=== PATIENT | male | born 1955 | race African-American/Black ===

== ENCOUNTER 2017-12-14 05:54 | Inpatient (IN) | payer SELFPAY ==
[~2017-12-14] VITALS: Ht 172.7 cm; Wt 79.9 kg
[2017-12-14] MEDS ORDERED: IOHEXOL 350 MG/ML 10 ML VIAL (for RAD DIAG) IVCONTRAST ONE (05:55)
[2017-12-14 05:57] VITALS: BP 175/108; PULSE 92; RESP 18; TEMP 98.9; O2SAT 99
[2017-12-14] MEDS ORDERED: ASPIRIN 325 MG TAB PO ONE (06:15)
[2017-12-14] MEDS ORDERED: SODIUM CHLORIDE 0.9% FLUSH 10 ML FLUSH IVF PRN (06:15)
--- NOTE | 2017-12-14 06:21 | PD ---
HPI Chief Complaint: Respiratory Symptoms Time Seen by Provider: 06:08 Travel History International Travel<30 days: No Contact w/Intl Traveler<30days: No Traveled to known affect area: No History of Present Illness HPI The patient 62 years old. He complains of shortness of breath which has gradually been worsening over the past couple years. He has daily shortness of breath symptoms now. He also has dyspnea on exertion with chest discomfort on exertion as well palpitations and racing heart. He denies radiation of pain. No family history coronary artery disease. The patient has no history of coronary artery disease. Hypertension hyperlipidemia or smoking history. Severity moderate. PFSH Past Medical History Diminished Hearing: No GERD: Yes Inguinal Hernia: Yes Tetanus Vaccination: < 5 Years Influenza Vaccination: No Past Surgical History Other Surgery: Yes (left and right side ingunial hernia repairs) Social History Alcohol Use: Yes (occasionally) Tobacco Use: No Substance Use: No Allergies-Medications (Allergen,Severity, Reaction): Coded Allergies: No Known Allergies (Unverified , 12/14/17) Review of Systems Except as stated in HPI: all other systems reviewed are Neg General / Constitutional: No: Fever Physical Exam Narrative GENERAL: 62 yo M, WNWD, NAD SKIN: Warm and dry. HEAD: Atraumatic. Normocephalic. EYES: Pupils equal and round. No scleral icterus. No injection or drainage. ENT: No nasal bleeding or discharge. Mucous membranes pink and moist. NECK: Trachea midline. No JVD. CARDIOVASCULAR: Regular rate and rhythm. no chest wall tenderness. RESPIRATORY: No accessory muscle use. Clear to auscultation. Breath sounds equal bilaterally. GASTROINTESTINAL: Abdomen soft, non-tender, nondistended. Hepatic and splenic margins not palpable. MUSCULOSKELETAL: Extremities without clubbing, cyanosis, or edema. No obvious deformities. NEUROLOGICAL: Awake and alert. No obvious cranial nerve deficits. Motor grossly within normal limits. Five out of 5 muscle strength in the arms and legs. Normal speech. PSYCHIATRIC: Appropriate mood and affect; insight and judgment normal. Data Data Last Documented VS Vital Signs Date Time Temp Pulse Resp B/P (MAP) Pulse Ox O2 Delivery O2 Flow Rate FiO2 12/14/17 06:35 Room Air 12/14/17 05:57 98.9 92 18 175/108 (130) 99 Orders Orders Electrocardiogram (12/14/17 06:08) Basic Metabolic Panel (Bmp) (5/14/18 06:08) B-Type Natriuretic Peptide (12/14/17 06:08) Ckmb (Isoenzyme) Profile (12/14/17 06:08) Complete Blood Count With Diff (12/14/17 06:08) D-Dimer (12/14/17 06:08) Magnesium (Mg) (12/14/17 06:08) Prothrombin Time / Inr (Pt) (12/14/17 06:08) Act Partial Throm Time (Ptt) (12/14/17 06:08) Troponin I (12/14/17 06:08) Chest, Single Ap (12/14/17 06:08) Ecg Monitoring (12/14/17 06:08) Bilateral Bp Monitoring (12/14/17 06:08) Iv Access Insert/Monitor (12/14/17 06:08) Oximetry (12/14/17 06:08) Oxygen Administration (12/14/17 06:08) Aspirin (Aspirin) (12/14/17 06:15) Sodium Chloride 0.9% Flush (Ns Flush) (12/14/17 06:15) Labs Laboratory Tests Test 12/14/17 06:20 MDM Medical Decision Making Medical Screen Exam Complete: Yes Emergency Medical Condition: Yes Medical Record Reviewed: Yes Differential Diagnosis NSTEMI, unstable angina, coronary vasospasm, PE, PTX, aortic dissection, pericarditis, myocarditis, endocarditis, PNA, esophageal disease, aneurysm, musculoskeletal etiologies, anxiety, cocaine/sympathomimetic abuse Narrative Course EKG shows sinus rhythm at a rate of [address] changes Case discussed with the oncoming provider at 7 AM. Follow up with the blood work imaging and reassess patient. Oncoming provider is Dr. Blue. Diagnosis Primary Impression: Chest pain Qualified Codes: R07.9 - Chest pain, unspecified Andreas Fisher MD December 14, 2017 06:21
[2017-12-14 06:51] LABS: AUTOMATED NEUTROPHIL # 3.3 TH/MM3 (1.8-7.7); BASOPHIL % 0.6 % (0.0-2.0); EOSINOPHIL # 0.1 TH/MM3 (0-0.4); HEMATOCRIT 44.2 % (39.0-51.0); HEMOGLOBIN 15.7 GM/DL (13.0-17.0); LYMPH % 36.4 % (9.0-44.0); LYMPHOCYTE # 2.1 TH/MM3 (1.0-4.8); MEAN CELL VOLUME 87.6 FL (80.0-100.0); MEAN CORPUSCULAR HEMOGLOBIN 31.2 PG (27.0-34.0); MEAN CORPUSCULAR HGB CONC 35.6 % (32.0-36.0); MEAN PLATELET VOLUME 9.1 FL (7.0-11.0); MONOCYTE # 0.4 TH/MM3 (0-0.9); PLATELET COUNT 211 TH/MM3 (150-450); RED BLOOD COUNT 5.05 MIL/MM3 (4.50-5.90); RED CELL DISTRIBUTION WIDTH 13.7 % (11.6-17.2); WHITE BLOOD COUNT 5.9 TH/MM3 (4.0-11.0)
--- NOTE | 2017-12-14 06:53 | RADRPT ---
EXAM DATE/TIME: 12/14/2017 06:25 [facility] COMPARISON: No previous studies available for comparison. INDICATIONS : Chest pain. MEDICAL HISTORY : None. SURGICAL HISTORY : None. ENCOUNTER: Initial ACUITY: 1 day PAIN SCORE: 6/10 LOCATION: Bilateral chest FINDINGS: A single view of the chest demonstrates the lungs to be symmetrically aerated without evidence of mas s, infiltrate or effusion. Tortuous aorta. Small hiatal hernia. CONCLUSION: 1. No active disease. Small hiatal hernia. Afshin Jay MD on December 14, 2017 at 6:51 Board Certified Radiologist. This report was verified electronically.
[2017-12-14 06:55] LABS: INTERNATIONAL NORMALIZED RATIO 1.1 RATIO; PROTHROMBIN TIME - PATIENT 11.3 SEC (9.8-11.6)
[2017-12-14 06:56] LABS: D-DIMER 1.87 MG/L FEU (0.00-0.50)
[2017-12-14 07:14] VITALS: BP 161/101; PULSE 94; RESP 18; O2SAT 98
[2017-12-14 07:25] LABS: BLOOD UREA NITROGEN 9 MG/DL (7-18); CALCIUM 8.3 MG/DL (8.5-10.1); CHLORIDE 104 MEQ/L (98-107); CREATININE 1.12 MG/DL (0.60-1.30); GLOMERULAR FILTRATION RATE 80 ML/MIN (>89); GLUCOSE,RANDOM 142 MG/DL (74-106); SODIUM (NA) 141 MEQ/L (136-145)
[2017-12-14 07:29] LABS: TROPONIN I LESS THAN 0.02 NG/ML (0.02-0.05)
--- NOTE | 2017-12-14 08:25 | RADRPT ---
EXAM DATE/TIME: 12/14/2017 07:54 [facility] COMPARISON: No previous studies available for comparison. INDICATIONS : Shortness of breath, chest pain IV CONTRAST: 73 cc Omnipaque 350 (iohexol) IV RADIATION DOSE: 9.59 CTDIvol (mGy) MEDICAL HISTORY : Cardiovascular disease. Hypertension. Gastroesophageal reflux disease. SURGICAL HISTORY : Inguinal hernia repair. ENCOUNTER: Initial ACUITY: 1 day PAIN SCALE: 2/10 LOCATION: chest TECHNIQUE: Volumetric scanning of the chest was performed using a pulmonary embolism protocol MIP images were re constructed. Using automated exposure control and adjustment of the mA and/or kV according to patien t size, radiation dose was kept as low as reasonably achievable to obtain optimal diagnostic quality images. DICOM format image data is available electronically for review and comparison. Follow-up recommendations for detected pulmonary nodules are based at a minimum on nodule size and pa tient risk factors according to Fleischner Society Guidelines. FINDINGS: The examination is of good diagnostic quality. The examination demonstrates pulmonary embolus in the first and second order branches in the right upper lobe. There is moderate embolic burden. There is p ulmonary embolus seen in the right lower lobe as well. The heart is normal in size. There is no hilar or mediastinal adenopathy identified. The visualized pulmonary parenchyma demonstrates hyperinflation suggesting COPD but is otherwise candelario r. The limited portions of upper abdomen visualized demonstrate a simple cyst arising from the left kidn ey but are otherwise unremarkable. CONCLUSION: 1. The examination is positive for pulmonary embolus. 2. COPD changes within the pulmonary parenchyma. Andreas Francois MD on December 14, 2017 at 8:19 Board Certified Radiologist. This report was verified electronically.
[2017-12-14] MEDS ORDERED: ENOXAPARIN SODIUM 80 MG/0.8 ML SYRINGE SQ ONE (08:45)
[2017-12-14] MEDS ORDERED: cloNIDine HCL 0.1 MG TAB PO PRN (09:15)
[2017-12-14] MEDS ORDERED: SODIUM CHLORIDE 0.9% FLUSH 10 ML FLUSH IV FLUSH PRN (09:15)
--- NOTE | 2017-12-14 09:17 | PD ---
Data Data Last Documented VS Vital Signs Date Time Temp Pulse Resp B/P (MAP) Pulse Ox O2 Delivery O2 Flow Rate FiO2 12/14/17 07:14 94 18 161/101 (121) 98 Room Air 12/14/17 05:57 98.9 Orders Orders Electrocardiogram (12/14/17 06:08) Basic Metabolic Panel (Bmp) (12/14/17 06:08) B-Type Natriuretic Peptide (12/14/17 06:08) Ckmb (Isoenzyme) Profile (12/14/17 06:08) Complete Blood Count With Diff (12/14/17 06:08) D-Dimer (12/14/17 06:08) Magnesium (Mg) (12/14/17 06:08) Prothrombin Time / Inr (Pt) (12/14/17 06:08) Act Partial Throm Time (Ptt) (12/14/17 06:08) Troponin I (12/14/17 06:08) Chest, Single Ap (12/14/17 06:08) Ecg Monitoring (12/14/17 06:08) Bilateral Bp Monitoring (12/14/17 06:08) Iv Access Insert/Monitor (12/14/17 06:08) Oximetry (12/14/17 06:08) Oxygen Administration (12/14/17 06:08) Aspirin (Aspirin) (12/14/17 06:15) Sodium Chloride 0.9% Flush (Ns Flush) (12/14/17 06:15) CKMB (12/14/17 06:20) CKMB% (12/14/17 06:20) Ct Pulmonary Angiogram (12/14/17 ) Iohexol 350 Inj (Omnipaque 350 Inj) (12/14/17 05:55) Enoxaparin Inj (Lovenox Inj) (12/14/17 08:45) Admit Order (Ed Use Only) (12/14/17 09:03) Labs Laboratory Tests Test 12/14/17 06:20 White Blood Count 5.9 TH/MM3 Red Blood Count 5.05 MIL/MM3 Hemoglobin 15.7 GM/DL Hematocrit 44.2 % Mean Corpuscular Volume 87.6 FL Mean Corpuscular Hemoglobin 31.2 PG Mean Corpuscular Hemoglobin Concent 35.6 % Red Cell Distribution Width 13.7 % Platelet Count 211 TH/MM3 Mean Platelet Volume 9.1 FL Neutrophils (%) (Auto) 56.0 % Lymphocytes (%) (Auto) 36.4 % Monocytes (%) (Auto) 6.0 % Eosinophils (%) (Auto) 1.0 % Basophils (%) (Auto) 0.6 % Neutrophils # (Auto) 3.3 TH/MM3 Lymphocytes # (Auto) 2.1 TH/MM3 Monocytes # (Auto) 0.4 TH/MM3 Eosinophils # (Auto) 0.1 TH/MM3 Basophils # (Auto) 0.0 TH/MM3 CBC Comment DIFF FINAL Differential Comment Prothrombin Time 11.3 SEC Prothromb Time International Ratio 1.1 RATIO Activated Partial Thromboplast Time 25.4 SEC D-Dimer Quantitative (PE/DVT) 1.87 MG/L FEU Blood Urea Nitrogen 9 MG/DL Creatinine 1.12 MG/DL Random Glucose 142 MG/DL Calcium Level 8.3 MG/DL Magnesium Level 2.0 MG/DL Sodium Level 141 MEQ/L Potassium Level 3.6 MEQ/L Chloride Level 104 MEQ/L Carbon Dioxide Level 28.0 MEQ/L Anion Gap 9 MEQ/L Estimat Glomerular Filtration Rate 80 ML/MIN Total Creatine Kinase 129 U/L Creatine Kinase MB 2.0 NG/ML Troponin I LESS THAN 0.02 NG/ML B-Type Natriuretic Peptide 7 PG/ML MDM Supervised Visit with CHARLES: No Narrative Course This is a 62-year-old male who presents to the emergency department with shortness of breath. He has normal vital signs. D-dimer was elevated. Patient has multiple pulmonary emboli. He was placed on Lovenox and will be admitted. 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 Physician Communication Physician Communication Discussed with Dr. Moura Diagnosis Primary Impression: Pulmonary embolism Qualified Codes: I26.99 - Other pulmonary embolism without acute cor pulmonale Admitting Information Admitting Physician Requests: Admit Giana Blue MD December 14, 2017 09:17
--- NOTE | 2017-12-14 09:55 | HHI.HP ---
HPI Service [facility] Primary Care Physician No Primary Care Physician Admission Diagnosis pulmonary embolism Diagnoses: Chief Complaint: Increasing shortness of breath Travel History International Travel<30 Days: No Contact w/Intl Traveler <30 Da: No Traveled to Known Affected Are: No History of Present Illness 62-year-old male with no significant medical history who presented to the hospital with complaint of worsening shortness of breath over the past few weeks. 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 He did note some tightness in his bilateral calf muscles recently. He states his shortness of breath got worse this morning which brought him to the emergency room. He denies any chest pain. Workup in the emergency room is positive for pulmonary embolism. The patient has been started on Lovenox. Review of Systems Constitutional: DENIES: Fever, Chills Respiratory: COMPLAINS OF: Shortness of breath, DENIES: Cough Cardiovascular: DENIES: Chest pain, Syncope Musculoskeletal: COMPLAINS OF: Muscle aches Except as stated in HPI: all other systems reviewed are Neg Past Family Social History Past Medical History Intermittent GERD Past Surgical History Bilateral inguinal hernia repair Allergies: Coded Allergies: No Known Allergies (Unverified , 12/14/17) Family History Mother from complications of heart disease in her 60s. Social History Patient denies ever using tobacco. Admits to occasional alcohol, 2-3 times a week. Patient admits to using cocaine a couple times a week. Physical Exam Vital Signs Vital Signs Date Time Temp Pulse Resp B/P (MAP) Pulse Ox O2 Delivery O2 Flow Rate FiO2 12/14/17 07:14 94 18 161/101 (121) 98 Room Air 12/14/17 06:35 Room Air 12/14/17 06:35 Room Air 12/14/17 05:57 98.9 92 18 175/108 (130) 99 Physical Exam GENERAL: This is a well-nourished, well-developed patient, in no apparent distress. SKIN: No rashes, ecchymoses or lesions. Cool and dry. HEAD: Atraumatic. Normocephalic. No temporal or scalp tenderness. EYES: Pupils equal round and reactive. Extraocular motions intact. No scleral icterus. No injection or drainage. ENT: Nose without bleeding, purulent drainage or septal hematoma. Throat without erythema, tonsillar hypertrophy or exudate. Uvula midline. Airway patent. NECK: Trachea midline. No JVD or lymphadenopathy. Supple, nontender, no meningeal signs. CARDIOVASCULAR: Regular rate and rhythm without murmurs, gallops, or rubs. RESPIRATORY: Clear to auscultation. Breath sounds equal bilaterally. No wheezes , rales, or rhonchi. GASTROINTESTINAL: Abdomen soft, non-tender, nondistended. No hepato-splenomegaly , or palpable masses. No guarding. MUSCULOSKELETAL: Extremities without clubbing, cyanosis, or edema. No joint tenderness, effusion, or edema noted. No calf tenderness. Negative Homans sign bilaterally. NEUROLOGICAL: Awake and alert. Cranial nerves II through XII intact. Motor and sensory grossly within normal limits. Five out of 5 muscle strength in all muscle groups. Normal speech. Laboratory Laboratory Tests Test 12/14/17 06:20 White Blood Count 5.9 Red Blood Count 5.05 Hemoglobin 15.7 Hematocrit 44.2 Mean Corpuscular Volume 87.6 Mean Corpuscular Hemoglobin 31.2 Mean Corpuscular Hemoglobin Concent 35.6 Red Cell Distribution Width 13.7 Platelet Count 211 Mean Platelet Volume 9.1 Neutrophils (%) (Auto) 56.0 Lymphocytes (%) (Auto) 36.4 Monocytes (%) (Auto) 6.0 Eosinophils (%) (Auto) 1.0 Basophils (%) (Auto) 0.6 Neutrophils # (Auto) 3.3 Lymphocytes # (Auto) 2.1 Monocytes # (Auto) 0.4 Eosinophils # (Auto) 0.1 Basophils # (Auto) 0.0 CBC Comment DIFF FINAL Differential Comment Prothrombin Time 11.3 Prothromb Time International Ratio 1.1 Activated Partial Thromboplast Time 25.4 D-Dimer Quantitative (PE/DVT) 1.87 Blood Urea Nitrogen 9 Creatinine 1.12 Random Glucose 142 Calcium Level 8.3 Magnesium Level 2.0 Sodium Level 141 Potassium Level 3.6 Chloride Level 104 Carbon Dioxide Level 28.0 Anion Gap 9 Estimat Glomerular Filtration Rate 80 Total Creatine Kinase 129 Creatine Kinase MB 2.0 Troponin I LESS THAN 0.02 B-Type Natriuretic Peptide 7 Result Diagram: 5/14/18 0620 5/14/18 0620 Caprini VTE Risk Assessment Caprini VTE Risk Assessment: Mod/High Risk (score >= 2) Caprini Risk Assessment Model Point Value = 1 Point Value = 2 Point Value = 3 Point Value = 5 Age 41-60 Minor surgery BMI > 25 kg/m2 Swollen legs Varicose veins or History of unexplained or recurrent spontaneous Oral contraceptives or hormone replacement Sepsis (< 1 month) Serious lung disease, including pneumonia (< 1 month) Abnormal pulmonary function Acute myocardial infarction Congestive heart failure (< 1 month) History of inflammatory bowel disease Medical patient at bed rest Age 61-74 Arthroscopic surgery Major open surgery (> 45 min) Laparoscopic surgery (> 45 min) Malignancy Confined to bed (> 72 hours) Immobilizing plaster cast Central venous access Age >= 75 History of VTE Family history of VTE Factor V Leiden Prothrombin [id number] Lupus anticoagulant Anticardiolipin antibodies Elevated serum homocysteine Heparin-induced thrombocytopenia Other congenital or acquired thrombophilia Stroke (< 1 month) Elective arthroplasty Hip, pelvis, or leg fracture Acute spinal cord injury (< 1 month) Prophylaxis Regimen Total Risk Factor Score Risk Level Prophylaxis Regimen 0-1 Low Early ambulation 2 Moderate Order ONE of the following: *Sequential Compression Device (SCD) *Heparin 5000 units SQ BID 3-4 Higher Order ONE of the following medications: *Heparin 5000 units SQ TID *Enoxaparin/Lovenox 40 mg SQ daily (WT < 150 kg, CrCl > 30 mL/min) *Enoxaparin/Lovenox 30 mg SQ daily (WT < 150 kg, CrCl > 10-29 mL/min) *Enoxaparin/Lovenox 30 mg SQ BID (WT < 150 kg, CrCl > 30 mL/min) AND/OR *Sequential Compression Device (SCD) 5 or more Highest Order ONE of the following medications: *Heparin 5000 units SQ TID (Preferred with Epidurals) *Enoxaparin/Lovenox 40 mg SQ daily (WT < 150 kg, CrCl > 30 mL/min) *Enoxaparin/Lovenox 30 mg SQ daily (WT < 150 kg, CrCl > 10-29 mL/min) *Enoxaparin/Lovenox 30 mg SQ BID (WT < 150 kg, CrCl > 30 mL/min) AND *Sequential Compression Device (SCD) Assessment and Plan Problem List: (1) Pulmonary embolism ICD Code: I26.99 - Other pulmonary embolism without acute cor pulmonale Status: Acute Plan: Risk factors include immobilization. 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 Continue Lovenox 1 mg/kg every 12 hours. Discussed oral anticoagulants with the patient. Risk and benefit discussed. Will plan to start on Xarelto tomorrow if he remains stable. Check bilateral lower extremity ultrasound for DVT. Supplemental oxygen as needed (2) HTN (hypertension) ICD Code: I10 - Essential (primary) hypertension Plan: Suspect he has undiagnosed hypertension. Cocaine abuse may be contributing as well. We will start amlodipine 5 mg daily Clonidine as needed for blood pressure greater than 180/100. (3) Cocaine abuse ICD Code: F14.10 - Cocaine abuse, uncomplicated Plan: The patient was counseled about stopping illicit drug use. Discussed Condition With Dr. Blue Physician Certification 2 Midnight Certification Type: Admission for Inpatient Services Order for Inpatient Services The services are ordered in accordance with Medicare regulations or non- Medicare payer requirements, as applicable. In the case of services not specified as inpatient-only, they are appropriately provided as inpatient services in accordance with the 2-midnight benchmark. Estimated LOS (days): 2 days is the estimated time the patient will need to remain in the hospital, assuming treatment plan goals are met and no additional complications. Post-Hospital Plan: Home Problem Qualifiers (1) Pulmonary embolism: Qualified Codes: I26.99 - Other pulmonary embolism without acute cor pulmonale Dipak Lincoln MD December 14, 2017 09:55
[2017-12-14] MEDS: amLODIPine BESYLATE 5 MG TAB PO SCH (10:09)
--- NOTE | 2017-12-14 10:54 | RADRPT ---
EXAM DATE/TIME: 12/14/2017 09:57 [facility] COMPARISON: No previous studies available for comparison. INDICATIONS : Pulmonary embolism. MEDICAL HISTORY : Gastroesophageal reflux disease. Hernia. SURGICAL HISTORY : Inguinal hernia repair. ENCOUNTER: Initial ACUITY: 3 days PAIN SCORE: 0/10 LOCATION: Bilateral lower extremities. TECHNIQUE: Venous ultrasound of the left and right leg was performed from the inguinal ligament to the proximal calf. Real-time, color Doppler and spectral tracing, compression and augmentation techniques were us ed. FINDINGS: RIGHT LEG: There is normal compressibility of the deep venous system from the inguinal region to the proximal ca lf. No echogenic clot is seen in the lumen of the common femoral, femoral, popliteal, and posterior tibial veins. There is a normal response of the venous system to proximal and distal augmentation an d respiration. LEFT LEG: There is normal compressibility of the deep venous system from the inguinal region to the proximal ca lf. No echogenic clot is seen in the lumen of the common femoral, femoral, popliteal, and posterior tibial veins. There is a normal response of the venous system to proximal and distal augmentation an d respiration. CONCLUSION: Negative for deep venous thrombosis. Thong Francois MD FACR on December 14, 2017 at 10:51 Board Certified Radiologist. This report was verified electronically.
[2017-12-14 11:39] VITALS: BP 170/107; PULSE 88; RESP 20; TEMP 98.6; O2SAT 99
[2017-12-14] MEDS ORDERED: ATEN25TA PO (11:48)
[2017-12-14] MEDS ORDERED: CHLO25TA38 PO (11:48)
[2017-12-14] MEDS ORDERED: NEXI20CA PO (11:48)
[2017-12-14 15:58] VITALS: BP 154/105; PULSE 87; RESP 20; TEMP 98.6; O2SAT 100
--- NOTE | 2017-12-14 18:23 | EKG ---
Date Performed: 12/14/2017 Time Performed: 06:25:35 PTAGE: 62 years EKG: Sinus rhythm NONSPECIFIC T-WAVE ABNORMALITY BORDERLINE ECG NO PREVIOUS TRACING DOCTOR: Sean Dillard Interpretating Date/Time 12/14/2017 18:22:53
[2017-12-14 20:00] VITALS: BP 156/94; PULSE 94; RESP 18; TEMP 98.6; O2SAT 97
[2017-12-14] MEDS: ENOXAPARIN SODIUM 80 MG/0.8 ML SYRINGE SQ SCH (20:42)
[2017-12-14] MEDS: SODIUM CHLORIDE 0.9% FLUSH 10 ML FLUSH IV FLUSH SCH (20:45)
[2017-12-14 22:36] VITALS: PULSE 103
[2017-12-15] VITALS (9 sets, daily range): BP systolic 136–156; BP diastolic 80–104; PULSE 76–95; RESP 18–20; TEMP 97.6–98.7; O2SAT 98–100
[2017-12-15] MEDS: amLODIPine BESYLATE 5 MG TAB PO SCH (08:25)
[2017-12-15] MEDS: ENOXAPARIN SODIUM 80 MG/0.8 ML SYRINGE SQ SCH (08:29)
[2017-12-15] MEDS: SODIUM CHLORIDE 0.9% FLUSH 10 ML FLUSH IV FLUSH SCH ×2 (08:31→20:37)
[2017-12-15] MEDS ORDERED: PNEUMOCOCCAL POLYVALENT INJ 25 MCG/0.5 ML SYR IM ONE (09:00)
--- NOTE | 2017-12-15 18:19 | HHI.PR ---
Subjective Remarks Follow up for PE. Patient is currently doing well. No CP, SOB, fever, chills. Currently on room air. Not requiring any pain meds. Objective Vitals Vital Signs Date Time Temp Pulse Resp B/P (MAP) Pulse Ox O2 Delivery O2 Flow Rate FiO2 12/15/17 16:00 98.2 82 20 146/80 (102) 98 12/15/17 12:27 98.7 95 20 151/99 (116) 98 12/15/17 12:25 94 12/15/17 08:00 97.6 83 20 153/99 (117) 100 12/15/17 06:29 98.1 89 18 136/87 (103) 99 12/15/17 05:00 82 12/15/17 01:15 76 12/15/17 00:00 98.5 84 18 156/104 (121) 100 12/14/17 22:36 103 12/14/17 20:00 98.6 94 18 156/94 (114) 97 I/O 12/14/17 12/14/17 12/14/17 12/15/17 12/15/17 12/15/17 07:00 15:00 23:00 07:00 15:00 23:00 Intake Total 480 ml Output Total 350 ml Balance -350 ml 480 ml Intake Oral 480 ml Output Urine Total 350 ml # Voids 3 6 # Bowel Movements 1 1 Result Diagram: 12/14/17 0620 12/14/17 0620 Imaging Last Impressions Chest X-Ray 12/14/17 0608 Signed Impressions: Service Date/Time: Thursday, December 14, 2017 06:25 - CONCLUSION: 1. No active disease. Small hiatal hernia. Afshin Jay MD Lower Extremity Ultrasound 12/14/17 0000 Signed Impressions: Service Date/Time: Thursday, December 14, 2017 09:57 - CONCLUSION: Negative for deep venous thrombosis. Thong Francois MD FACR CT Angiography 12/14/17 0000 Signed Impressions: Service Date/Time: Thursday, December 14, 2017 07:54 - CONCLUSION: 1. The examination is positive for pulmonary embolus. 2. COPD changes within the pulmonary parenchyma. Andreas Francois MD Objective Remarks GENERAL: AOX3, NAD. SKIN: Warm and dry. HEAD: Normocephalic. EYES: No scleral icterus. No injection or drainage. NECK: Supple, trachea midline. No JVD or lymphadenopathy. CARDIOVASCULAR: Regular rate and rhythm without murmurs, gallops, or rubs. RESPIRATORY: Breath sounds equal bilaterally. No accessory muscle use. GASTROINTESTINAL: Abdomen soft, non-tender, nondistended. MUSCULOSKELETAL: No cyanosis, or edema. BACK: Nontender without obvious deformity. No CVA tenderness. Procedures None. 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 Work up indicated right sided PE. Right sided Pulmonary embolism - D/C Lovenox. Patient received 80mg Lovenox in the AM. - Will start Apixaban 10mg BID starting this evening. - After morning dose of Apixaban, patient can be discharged if he remains hemodynamically stable. - Patients medicare starts January 01. We will arrange Apixaban coupon to cover him the first month. Hypertension - Continue Amlodipine 5mg Qday. Cocaine abuse - patient counselled. Full code. Apixaban. Problem Qualifiers (1) Pulmonary embolism: Qualified Codes: I26.99 - Other pulmonary embolism without acute cor pulmonale Tunde Prado DO December 15, 2017 18:19
[2017-12-15] MEDS: APIXABAN 5 MG TABLET PO SCH (20:37)
[2017-12-16] VITALS: BP 145/93; PULSE 84; RESP 20; TEMP 98.5; O2SAT 99
[2017-12-16 04:00] VITALS: BP 142/81; PULSE 85; RESP 20; TEMP 98.1; O2SAT 100
[2017-12-16 08:16] VITALS: BP 128/76; PULSE 88; RESP 20; TEMP 97.8; O2SAT 99
[2017-12-16] MEDS: amLODIPine BESYLATE 5 MG TAB PO SCH (08:54)
[2017-12-16] MEDS: APIXABAN 5 MG TABLET PO SCH (08:54)
[2017-12-16] MEDS: SODIUM CHLORIDE 0.9% FLUSH 10 ML FLUSH IV FLUSH SCH (08:55)
[2017-12-16] MEDS ORDERED: APIX5TAB PO (11:14)
[2017-12-16] MEDS ORDERED: AMLO5 PO (11:14)
--- NOTE | 2017-12-16 11:17 | HHI.DS ---
Discharge Summary Admission Date December 14, 2017 at 9:05 am Discharge Date: December 16, 2017 Admitting Diagnosis pulmonary embolism (1) Pulmonary embolism ICD Code: I26.99 - Other pulmonary embolism without acute cor pulmonale Status: Acute (2) HTN (hypertension) ICD Code: I10 - Essential (primary) hypertension (3) Cocaine abuse ICD Code: F14.10 - Cocaine abuse, uncomplicated Procedures None. Brief History - From Admission 62-year-old male with no significant medical history who presented to the hospital with complaint of worsening shortness of breath over the past few weeks. 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 He did note some tightness in his bilateral calf muscles recently. He states his shortness of breath got worse this morning which brought him to the emergency room. He denies any chest pain. Workup in the emergency room is positive for pulmonary embolism. The patient has been started on Lovenox. CBC/BMP: 12/14/1720 12/14/17619 Significant Findings Laboratory Tests Test 12/14/17 06:20 D-Dimer Quantitative (PE/DVT) 1.87 MG/L FEU (0.00-0.50) Random Glucose 142 MG/DL (74-106) Calcium Level 8.3 MG/DL (8.5-10.1) Estimat Glomerular Filtration Rate 80 ML/MIN (>89) Troponin I LESS THAN 0.02 NG/ML Imaging Last Impressions Chest X-Ray 12/14/17607 Signed Impressions: Service Date/Time: Thursday, December 14, 2017 06:25 - CONCLUSION: 1. No active disease. Small hiatal hernia. Afshin Jay MD Lower Extremity Ultrasound 12/14/17 0000 Signed Impressions: Service Date/Time: Thursday, December 14, 2017 09:57 - CONCLUSION: Negative for deep venous thrombosis. Thong Francois MD FACR CT Angiography 12/14/17 0000 Signed Impressions: Service Date/Time: Thursday, December 14, 2017 07:54 - CONCLUSION: 1. The examination is positive for pulmonary embolus. 2. COPD changes within the pulmonary parenchyma. Andreas Francois MD PE at Discharge GENERAL: AOX3, NAD. SKIN: Warm and dry. HEAD: Normocephalic. EYES: No scleral icterus. No injection or drainage. NECK: Supple, trachea midline. No JVD or lymphadenopathy. CARDIOVASCULAR: Regular rate and rhythm without murmurs, gallops, or rubs. RESPIRATORY: Breath sounds equal bilaterally. No accessory muscle use. GASTROINTESTINAL: Abdomen soft, non-tender, nondistended. MUSCULOSKELETAL: No cyanosis, or edema. BACK: Nontender without obvious deformity. No CVA tenderness. Pt update on day of discharge Patient is doing well. No acute concerns. No fever, chills. Denies any chest pain, SOB. On room air. Ambulating well. Hospital Course Mr. 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 Work up indicated right sided PE. Patient was initially started on Lovenox 1mg/kg BID. We switched him to Apixaban 10mg BID. He received two doses and remained hemodynamically stable. He informed us that his medicare will be activated on January 01, 2018. CM arranged a coupon for him to get Apixaban. Patient was subsequently discharged home on Apixaban. He was also given Rx for Amlodipine for blood pressure. Patient was advised to quit using cocaine completely. He verbalized understanding. Pt Condition on Discharge: Good Discharge Disposition: Discharge Home Discharge Time: <= 30 minutes Discharge Instructions DIET: Follow Instructions for: Heart Healthy Diet Activities you can perform: Regular-No Restrictions Follow up Referrals: PCP Follow-up - 1 Week New Medications: Amlodipine (Norvasc) 5 Mg Tab 5 MG PO DAILY for Blood Pressure Management, #30 TAB 5 Refills Apixaban (Eliquis) 5 Mg Tab 10 MG PO BID for Blood Clot Prevention, #60 TAB Take 2 tablets (10mg) twice a day for 6 days THEN Take 1 tablet Twice a day. Continued Medications: Chlorpromazine (Chlorpromazine) 25 Mg Tab 25 MG PO BID PRN for NAUSEA OR VOMITING, TAB [address] (Nexium) 20 Mg Capdr 20 MG PO DAILY, CAP 0 Refills Discontinued Medications: Atenolol (Atenolol) 25 Mg Tab 25 MG PO BID, #60 TAB 0 Refills Tunde Prado DO December 16, 2017 11:17
== END 2017-12-16 12:15 | disposition home or self-care (01) | DRG 176 ==
LOC: NEPC 05:54 → NEDA 09:05 → N05B 11:12
PROVIDERS: ADMIT Hospitalist; ATTEND Hospitalist
DX: I26.99 Other pulmonary embolism without acute cor pulmonale (principal); I10 Essential (primary) hypertension; E78.5 Hyperlipidemia, unspecified; K21.9 Gastro-esophageal reflux disease without esophagitis; F14.10 Cocaine abuse, uncomplicated; Z87.891 Personal history of nicotine dependence; Z23 Encounter for immunization
CPT/HCPCS: 71045; 71275; 80048; 82550; 82552; 83735; 83880; 84484; 85025; 85379; 85610; 85730; 90732; 93005; 93970; 96372; J1650; Q9967